=== PATIENT | female | born 1975 | race Caucasian/White ===

== ENCOUNTER 2017-08-16 20:09 | Emergency (ER) | payer MEDICAID ==
[~2017-08-16] VITALS: Ht 165.1 cm; Wt 117.5 kg
[2017-08-16 20:24] VITALS: BP_SYST 145
[2017-08-16 22:50] VITALS: BP_SYST 122
== END 2017-08-16 22:50 | disposition home or self-care (01) ==
LOC: SED 20:09
DX: J06.9 Acute upper respiratory infection, unspecified (principal); I10 Essential (primary) hypertension; E11.9 Type 2 diabetes mellitus without complications; Z90.49 Acquired absence of other specified parts of digestive tract
CPT/HCPCS: 87081; 99283

== ENCOUNTER 2020-09-15 09:39 | Emergency (ER) | payer MEDICAID ==
[~2020-09-15] VITALS: Ht 165.1 cm; Wt 106.6 kg
[2020-09-15 09:46] VITALS: BP_SYST 159
[2020-09-15 10:29] LABS: BASOPHILS % (AUTO) 0.6 % (0.0-2.0); EOSINOPHILS # (AUTO) 0.2 K/uL (0.0-0.4); EOSINOPHILS % (AUTO) 2.5 % (0.0-4.0); HEMATOCRIT 40.6 % (36-48); HEMOGLOBIN 13.6 g/dL (12.0-16.0); LYMPHOCYTES # (AUTO) 2.3 K/uL (1.0-5.5); LYMPHOCYTES % (AUTO) 26.5 % (20.5-51.5); MEAN CORPUSCULAR HEMOGLOBIN 31 pg (27-31); MEAN CORPUSCULAR HGB CONC 34 % (32-36); MEAN CORPUSCULAR VOLUME 92 fL (79.0-98.0); MONOCYTES # (AUTO) 0.4 K/uL (0.0-1.0); MONOCYTES % (AUTO) 4.9 % (1.7-9.3); NEUTROPHILS # (AUTO) 5.7 K/uL (1.8-7.7); NEUTROPHILS % (AUTO) 65.5 % (40.0-70.0); PLATELET COUNT (AUTO) 312 K/uL (130-430); RED CELL DISTRIBUTION WIDTH 13.3 % (9.0-15.0); WHITE BLOOD COUNT (AUTO) 8.7 K/uL (4.8-10.8)
[2020-09-15 10:41] LABS: ANION GAP 7 (5-15); CALCIUM 8.4 mg/dL (8.4-11.0); CHLORIDE 106 mmol/L (98-107); CREATININE 0.78 mg/dL (0.55-1.30); GLUCOSE 148 mg/dL (70-99); SODIUM SERUM 139 mmol/L (136-145); UREA NITROGEN, BLOOD 13 mg/dL (8-21)
[2020-09-15 10:43] LABS: GFR AFRICAN AMERICAN 102 mL/min (>90)
[2020-09-15] MEDS ORDERED: cefTRIAXone 1 GM in D5W 50 ML IV ONE (11:30)
[2020-09-15 11:48] VITALS: BP_SYST 159
== END 2020-09-15 11:48 | disposition home or self-care (01) ==
LOC: SED 09:39
DX: R53.1 Weakness (principal)
CPT/HCPCS: 36415; 71045; 80048; 84484; 85025; 93005; 99285

== ENCOUNTER 2022-12-13 02:29 | Emergency (ER) | payer MEDICAID ==
[~2022-12-13] VITALS: Ht 167.6 cm; Wt 113.4 kg
[2022-12-13 02:38] VITALS: BP_SYST 139; PULSE 80; RESP 18; TEMP 98.4; O2SAT 97
[2022-12-13] MEDS ORDERED: ONDANSETRON 4 MG ODT TAB PO ONE (03:15)
[2022-12-13 03:47] VITALS: BP_SYST 139; PULSE 80; RESP 18; TEMP 98.4; O2SAT 97
== END 2022-12-13 03:50 | disposition home or self-care (01) ==
LOC: SED 02:29
DX: R11.0 Nausea (principal); E11.9 Type 2 diabetes mellitus without complications; I10 Essential (primary) hypertension; Z79.899 Other long term (current) drug therapy
CPT/HCPCS: 99283; Q0162

== ENCOUNTER 2023-12-16 13:08 | Emergency (ER) | payer MEDICAID ==
[~2023-12-16] VITALS: Ht 167.6 cm; Wt 108.4 kg
[2023-12-16 13:16] VITALS: BP_SYST 152; PULSE 78; RESP 18; TEMP 97; O2SAT 97
[2023-12-16] MEDS ORDERED: METF-379 PO (13:38)
[2023-12-16] MEDS ORDERED: DIF100 PO (13:38)
== END 2023-12-16 13:49 | disposition home or self-care (01) ==
LOC: SED 13:08
DX: B37.31 Acute candidiasis of vulva and vagina (principal); E11.65 Type 2 diabetes mellitus with hyperglycemia; I10 Essential (primary) hypertension
CPT/HCPCS: 82948; 99283